=== PATIENT | male | born 2000 | race Caucasian/White ===

== ENCOUNTER 2024-04-25 06:00 | Day surgery (SDC) | payer OTHER ==
[~2024-04-25] VITALS: Ht 172.7 cm; Wt 77.5 kg
[2024-04-25] MEDS ORDERED: BENA25TA5 PO (06:30)
[2024-04-25] MEDS ORDERED: fentaNYL 100 MCG/2 ML INJECTION As Ordered ONE (06:55)
[2024-04-25] MEDS: LR 1,000 ML IV SCH (06:55)
[2024-04-25] MEDS ORDERED: propofoL 200 MG/20 ML VIAL As Ordered ONE (06:56)
[2024-04-25] MEDS ORDERED: ROCURONIUM BROMIDE 50MG/5ML VIAL As Ordered ONE (06:56)
[2024-04-25] MEDS ORDERED: MIDAZOLAM INJ 2MG/2ML VIAL As Ordered ONE (06:56)
[2024-04-25] MEDS ORDERED: LIDOCAINE 2% 100MG/5ML SDV (FOR ANES.) As Ordered ONE (06:56)
[2024-04-25] MEDS: EPINEPHrine INJ 1 MG/ML 1ML AMP PN ONE (07:10)
[2024-04-25] MEDS: fentaNYL 100 MCG/2 ML INJECTION IV PRN (07:28)
[2024-04-25] MEDS: MIDAZOLAM INJ 2MG/2ML VIAL IV PRN (07:28)
[2024-04-25] MEDS: dexAMETHasone 10MG/1ML VIAL PRES.FREE PN ONE (07:29)
[2024-04-25] MEDS ORDERED: TRANEXAMIC ACID 100 MG/ML 10ML VIAL As Ordered ONE (07:29)
[2024-04-25] MEDS: ROPIvacaine 0.5% 30ML VIAL PN ONE (07:29)
[2024-04-25] MEDS: LIDOCAINE 1% SDV 5ML VIAL PN ONE (07:29)
[2024-04-25] MEDS ORDERED: EPINEPHrine 1MG/ML INJ 30ML MD-VIAL As Ordered ONE (07:32)
[2024-04-25] MEDS: ceFAZolin SOD 2 GM in IV 1 EA IV ONE (08:00)
[2024-04-25] MEDS: TRANEXAMIC ACID 100 MG/ML 10ML VIAL IV ONE (08:00)
[2024-04-25] MEDS ORDERED: ACETAMINOPHEN 1000MG 100ML IV BAG As Ordered ONE (08:22)
[2024-04-25] MEDS ORDERED: HYDROmorphone HCL 2MG/ML 1ML VIAL As Ordered ONE (10:26)
[2024-04-25] MEDS ORDERED: ONDANSETRON 4MG 2ML VIAL As Ordered ONE (11:37)
[2024-04-25] MEDS ORDERED: KETOROLAC 60MG 2ML VIAL As Ordered ONE (11:37)
[2024-04-25] MEDS ORDERED: SUGAMMADEX SODIUM 500 MG/5 ML VIAL (BRIDION) As Ordered ONE (11:37)
[2024-04-25] MEDS: EPINEPHrine INJ 1 MG/ML 1ML AMP As Ordered ONE (11:44)
[2024-04-25] MEDS ORDERED: MORPHINE 2 MG/ML 1ML VIAL IV PRN (12:05)
[2024-04-25] MEDS ORDERED: fentaNYL 100 MCG/2 ML INJECTION IV PRN (12:05)
[2024-04-25] MEDS ORDERED: ONDANSETRON 4MG 2ML VIAL IV PRN (12:05)
[2024-04-25] MEDS: oxyCODONE 5MG TAB PO PRN (13:24)
[2024-04-25 13:49] VITALS: BP 140/70; TEMP 98.7; O2SAT 97
== END 2024-04-25 14:13 | disposition home or self-care (01) ==
LOC: M SDC 06:00
PROVIDERS: ATTEND Orthopaedic Surgery
DX: M23.612 Other spontaneous disruption of anterior cruciate ligament of left knee (principal); M23.352 Other meniscus derangements, posterior horn of lateral meniscus, left knee
CPT/HCPCS: 29882; 29888; 73560; C1713; C1762; J0131; J0171; J0665; J0690; J1100; J1170; J1885; J2250; J2405; J3010